=== PATIENT | female | born 2005 | race Caucasian/White ===

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

== ENCOUNTER → 2025-10-02 | Outpatient (CLI) | payer OTHER ==
[~2025-10-02] MED LIST changes: +DOK1CAP4 PO; +LORA-1041 PO; +MEDR150I13 INJ; +MONT5CHW10 PO; +MONT5TAB7 PO; +OMEP-173; -OMEP-218; -RISP-7 PO; +RISP0.5T82 PO; -SING5CHW23 PO; +VENTAER INH
== END ==
LOC: M WUC 09:21
PROVIDERS: ATTEND Registered Nurse
DX: R05.9 Cough, unspecified (principal)